=== PATIENT | male | born 1965 | race Two or more races ===

== ENCOUNTER 2021-10-19 19:39 | Emergency (ER) | payer SELFPAY ==
--- NOTE | 2021-10-19 21:57 | ED ---
General Adult HPI - General Stated complaint: Covid test Time Seen by Provider: 10/19/21 21:55 Source: patient, RN notes reviewed Mode of arrival: ambulatory Limitations: no limitations - History of Present Illness Initial comments: 56-year-old male presents emergency department for COVID-19 testing. Patient states that he is traveling and needs covid 19 testing for travel. He is asymptomatic is no other complaints. - Related Data Allergies Allergy/AdvReac Type Severity Reaction Status Date / Time No Known Allergies Allergy Verified 10/19/21 21:56 Review of Systems ROS Statement: Those systems with pertinent positive or pertinent negative responses have been documented in the HPI. ROS Other: All systems not noted in ROS Statement are negative. General Exam General appearance: alert, in no apparent distress Head exam: Present: atraumatic, normocephalic, normal inspection Eye exam: Present: normal appearance, PERRL, EOMI. Absent: scleral icterus, conjunctival injection, periorbital swelling ENT exam: Present: normal exam, normal oropharynx, mucous membranes moist Neck exam: Present: normal inspection. Absent: tenderness, meningismus, lymphadenopathy Respiratory exam: Present: normal lung sounds bilaterally. Absent: respiratory distress, wheezes, rales, rhonchi, stridor Cardiovascular Exam: Present: regular rate, normal rhythm, normal heart sounds. Absent: systolic murmur, diastolic murmur, rubs, gallop, clicks Neurological exam: Present: alert, oriented X3 Course Vital Signs 10/19/21 21:56 Temperature 97.6 F Pulse Rate 84 Respiratory 16 Rate Blood Pressure 160/113 O2 Sat by Pulse 99 Oximetry Medical Decision Making - Medical Decision Making Patient presented for covid 19 testing for border crossing. Patient did test positive. But is stable patient is a symptomatic. - Lab Data Lab Results 10/19/21 Range/Units 21:58 Coronavirus (PCR) Detected A (Not Detectd) Disposition Clinical Impression: COVID-19 Disposition: HOME SELF-CARE Condition: Stable Instructions (If sedation given, give patient instructions): Coronavirus Disease 2019 (COVID-19) Additional Instructions: Please return to the Emergency Department if symptoms worsen or any other concerns. Is patient prescribed a controlled substance at d/c from ED?: No Referrals: None,Stated [Primary Care Provider] - 1-2 days
[2021-10-19 21:58] VITALS: PULSE 84; RESP 16; TEMP 97.6
[2021-10-19 22:47] VITALS: BP 160/96
== END 2021-10-19 22:47 | disposition home or self-care (01) ==
LOC: EC 19:39
DX: U07.1 COVID-19 (principal)
CPT/HCPCS: 87635; 99282